=== PATIENT | male | born 1985 | race Caucasian/White ===

== ENCOUNTER 2024-10-07 19:48 | Emergency (ER) | payer SELFPAY ==
[~2024-10-07] VITALS: Ht 167.6 cm; Wt 90.1 kg
[2024-10-07 19:58] VITALS: O2SAT 98
[2024-10-07] MEDS: KETOROLAC 15MG/ML VIAL IM ONE (20:46)
[2024-10-07] MEDS ORDERED: AMOX1TAB16 MT (20:58)
[2024-10-07] MEDS ORDERED: NAPR-1176 MT (20:59)
[2024-10-07 21:03] VITALS: BP 118/71; PULSE 64; RESP 18; TEMP 36.94740; O2SAT 98
== END 2024-10-07 21:13 | disposition home or self-care (01) ==
LOC: ER 19:48
DX: K04.7 Periapical abscess without sinus (principal); Z79.1 Long term (current) use of non-steroidal anti-inflammatories (NSAID)
CPT/HCPCS: 96372; 99283; J1885; Z7610